=== PATIENT | male | born 1960 | race Caucasian/White ===

== ENCOUNTER 2024-01-03 08:44 | Observation (INO) ==
--- NOTE | 2023-12-02 13:28 | PAT Medication Instructions ---
Medication Instructions Date of Service December 02, 2023 Home Medications albuterol sulfate 90 mcg/actuation aerosol inhaler 2 puff inhalation QID PRN diclofenac sodium 1 % topical gel (Voltaren Arthritis Pain) 2 g topical QID PRN docusate sodium 100 mg capsule (Dulcolax Stool Softener (docusate)) 100 mg PO DAILY famotidine 20 mg tablet 20 mg PO BID fluticasone propionate 50 mcg/actuation nasal spray,suspension 50 mcg intranasal QAM mometasone 220 mcg/actuation(60 doses) breath activated powder inhaler (Asmanex Twisthaler) 220 mcg inhalation BID mometasone-formoterol HFA 50 mcg-5 mcg/actuation aerosol inhaler (Dulera) 2 puff inhalation Q12H montelukast 10 mg tablet 10 mg PO HS STOP taking 24 hours before surgery diclofenac sodium 1 % topical gel (Voltaren Arthritis Pain) 2 g topical QID PRN DO NOT take the morning of surgery docusate sodium 100 mg capsule (Dulcolax Stool Softener (docusate)) 100 mg PO DAILY Take morning of surgery With a small sip of water, OTHERWISE NOTHING TO EAT OR DRINK AFTER MIDNIGHT: albuterol sulfate 90 mcg/actuation aerosol inhaler 2 puff inhalation QID PRN(use if needed; please bring with you to hospital day of surgery if possible) famotidine 20 mg tablet 20 mg PO BID fluticasone propionate 50 mcg/actuation nasal spray,suspension 50 mcg intranasal QAM mometasone 220 mcg/actuation(60 doses) breath activated powder inhaler (Asmanex Twisthaler) 220 mcg inhalation BID mometasone-formoterol HFA 50 mcg-5 mcg/actuation aerosol inhaler (Dulera) 2 puff inhalation Q12H Take evening before surgery albuterol sulfate 90 mcg/actuation aerosol inhaler 2 puff inhalation QID PRN(if needed) famotidine 20 mg tablet 20 mg PO BID mometasone 220 mcg/actuation(60 doses) breath activated powder inhaler (Asmanex Twisthaler) 220 mcg inhalation BID mometasone-formoterol HFA 50 mcg-5 mcg/actuation aerosol inhaler (Dulera) 2 puff inhalation Q12H montelukast 10 mg tablet 10 mg PO HS Other Notes If you have any questions please call us at [phone] or [phone] or [phone] or [phone]
--- NOTE | 2023-12-11 14:39 | Anesthesiology Consultation ---
Date of Service December 11, 2023 Assessment & Plan (1) Encounter for pre-operative examination: - Outpatient joint assessment: Patient is currently scheduled for inpatient pathway. If re-evaluated and patient/surgeon requests outpatient pathway, patient is acceptable candidate for outpatient joint program from anesthesia standpoint pending surgeon's office assessment of pt motivation/support/completion of same day joint program preop requirements. - facial hair: patient was advised on shaving/trimming facial hair. Chart Review Chart Review: Acceptable Risk for Surgery and Patient seen in Pre Admission Testing Teaching & Discussion Pre-Anesthesia Teaching/Discussion Notes: Instructed NPO after midnight before surgery, except medications with 15 cc of water. Medication instructions provided according to the PAT guidelines. History Surgery Operation Date: 01/03/24 08:00 Proposed Procedures p Right Total Knee Arthroplasty - Jovanni Fernandez DO Height/Weight Height: 5 ft 8 in Weight: 95.2 kg Allergies Allergy/AdvReac Type Severity Reaction Status Date / Time No Known Allergies Allergy Verified 11/29/23 14:14 Medications Home Medications Medication Instructions Recorded Confirmed Last Taken albuterol sulfate 90 mcg/actuation 2 puff inhalation QID PRN sob 11/29/23 11/29/23 Unknown aerosol inhaler diclofenac sodium 1 % topical gel 2 g topical QID PRN Pain 11/29/23 11/29/23 Unknown (Voltaren Arthritis Pain) docusate sodium 100 mg capsule 100 mg PO QPM 11/29/23 12/11/23 Unknown (Dulcolax Stool Softener (docusate)) famotidine 20 mg tablet 20 mg PO BID 11/29/23 11/29/23 Unknown fluticasone propionate 50 50 mcg intranasal QAM 11/29/23 11/29/23 Unknown mcg/actuation nasal spray,suspension mometasone 220 mcg/actuation(60 220 mcg inhalation BID 11/29/23 11/29/23 Unknown doses) breath activated powder inhaler (Asmanex Twisthaler) mometasone-formoterol HFA 50 mcg-5 2 puff inhalation Q12H 11/29/23 11/29/23 Unknown mcg/actuation aerosol inhaler (Dulera) montelukast 10 mg tablet 10 mg PO HS 11/29/23 11/29/23 Unknown Past Medical History Medical History (Updated 12/12/23 @ 09:34 by Paige Randall PA-C) Acid reflux controlled, stable per pt Asthma controlled w/ daily inhaler use; last albuterol inhaler use several days ago; patient reports average use as several times a week DJD (degenerative joint disease) Hx of bronchitis last episode several years ago Seasonal allergies Patient denies h/o stroke, seizures, heart attack, heart failure, DM, HTN, blood clots/DVTs or blood transfusions. Exercise / Class Metabolic Activity III < 4 Walking/Shop/Light housework (denies chest discomfort or shortness of breath with usual activities) Past Surgical History Surgical History History of ear surgery benign tumor History of vasectomy Hx of appendectomy Hx of tooth extraction Past Anesthesia History No Hx of Anesthesia Complications and No Family Hx of Anesthesia Complications History of PONV History of PONV (during drive home from surgery) and Hx of Motion Sickness Social History Smoking Status: Never smoker Do You Dip or Chew Tobacco: No (quit 8-9 yrs ago) Hx Alcohol Use: Yes alcohol intake frequency: a few times a week Hx Substance Use: No substance use type: does not use Review of Systems Snoring, denies witnessed apneas. Patient denies chest pain, shortness of breath, dyspnea on exertion, fever, chills, cough, wheezing, or palpitations. Physical Exam Vital Signs Vitals BP 125/71 P 77 TEMP 97.6 SP02 94% on RA RESP 18 Physical Patient resting comfortably in chair in no acute distress, alert and oriented, responding appropriately throughout visit Full cervical extension range of motion without pain TMD 3.5 finger breadths Mallampati Score 2 Dentition: upper removable bridge, denies chipped or loose teeth, caps/crowns, or implants Lungs: normal respiratory effort. Good air movement, clear throughout to auscultation, no adventitious breath sounds Cardiac: regular rate and rhythm, no murmurs noted Carotid arteries: negative bruit bilat Lab Results Anesthesia Preop Results Results Anesthesia Widget: WBC 6.47 K/ul (4.8-10.8) 12/11/23 Hgb 15.6 g/dl (14.0-18.0) 12/11/23 Hct 46.3 % (42.0-52.0) 12/11/23 Plt 186 K/uL (130-400) 12/11/23 Na 137 mmol/L (136-145) 12/11/23 K 4.2 mmol/L (3.5-5.1) 12/11/23 Cl 104 mmol/L (98-107) 12/11/23 CO2 27 mmol/L (21-32) 12/11/23 BUN 16 mg/dl (6-23) 12/11/23 Creat 0.94 mg/dl (0.6-1.4) 12/11/23 Glucose Level 142 mg/dl (70-99(Fasting)) H 12/11/23 PT 10.3 Seconds (9.0-12.0) 12/11/23 PTT 29 Seconds (21-31) 12/11/23 INR 0.9 (0.9-1.1) 12/11/23 Blood Type O Positive 12/11/23 Antibody Screen NEGATIVE 12/11/23 Testing Electrocardiogram Date: 12/11/23 NSR, rate 66 bpm Left anterior fascicular block Incomplete RBBB Chest X-Ray Date: 12/11/23 No active disease in the chest.
[~2024-01-03 08:44] MED LIST: BUPIVACAINE 0.5 % 5 MG/1 ML PF 10ML VIAL ONE; ROPIVACAINE 0.5% 5 MG/ML 30 ML VIAL ONE
[2024-01-03] MEDS: ACETAMINOPHEN 500 MG TAB PO SCH ×2 (09:56→14:29)
[2024-01-03] MEDS: GABAPENTIN 600 MG DOSE PO SCH (09:56)
[2024-01-03] MEDS: FAMOTIDINE 20 MG TAB PO SCH ×2 (10:00→20:14)
[2024-01-03] MEDS: dexAMETHasone**PF** 10 MG/ML VIAL IV SCH (10:04)
[2024-01-03] MEDS: LR 500ML BOLUS, THEN 15ML/HR IV SCH (10:04)
[2024-01-03] MEDS: LR 60ML/HR IV SCH (10:05)
--- NOTE | 2024-01-03 10:12 | History & Physical Bridge Note ---
Date of Service January 03, 2024 History & Physical Bridge Note I have examined the patient, reviewed the History & Physical and in the interval since the performance of the History & Physical I have noted the following changes of clinical significance: no changes noted
[2024-01-03] MEDS ORDERED: MIDAZOLAM HCL 1 MG/ML 2ML VIAL ONE (10:17)
[2024-01-03] MEDS ORDERED: ATROPINE SULFATE 0.1 MG/ML 10ML SYR IV PRN (10:48)
[2024-01-03] MEDS ORDERED: ONDANSETRON INJ 2 MG/ML 2 ML VIAL IV PRN ×2 (10:48→13:49)
[2024-01-03] MEDS ORDERED: ePHEDrine sulfate 50 MG/ML AMP IV PRN (10:48)
[2024-01-03] MEDS ORDERED: fentaNYL citrate PF 100 MCG/2 ML VIAL IV PRN (10:48)
[2024-01-03] MEDS: TRANEXAMIC ACID 1,000 MG **IV Pre-op IV SCH (10:55)
[2024-01-03] MEDS: ceFAZolin 2000MG 2,000 MG/15 ML SYR IV SCH ×2 (11:09→18:11)
[2024-01-03] MEDS: ORTHO JOINT ANESTHETIC ONE (11:53)
[2024-01-03] MEDS: ROPIV 0.5% 246mg, Ketorolac 30mg, EPINEPHrine 0.5mg in NSS INFIL SCH (11:53)
[2024-01-03] MEDS ORDERED: PROPOFOL IV EMULSION 10 MG/ML 20 ML VIAL IV ONE (12:06)
[2024-01-03] MEDS ORDERED: LIDOCAINE 2% 2 ML VIAL/AMP(20MG/ML) INFIL ONE (12:06)
[2024-01-03] MEDS ORDERED: PHENYLEPHRINE 100MCG/ML 5ML SYR ONE (12:09)
[2024-01-03] MEDS: TRANEXAMIC ACID 1,000 MG **IV Intra-op IV SCH (12:15)
--- NOTE | 2024-01-03 12:50 | Operative Report ---
PG Post Operative Report Pre & Post Diagnosis Operation Date: 01/03/24 11:00 Pre-Op Diagnosis: Degenerative Joint Disease, Right Knee Post-Op Diagnosis: Degenerative Joint Disease, Right Knee I identified the patient and participated in the time-out.: Yes Procedure Operation Date: 01/03/24 11:00 Actual Procedures p Right Total Knee Arthroplasty - Jovanni Fernandez DO Surgeon Jovanni Fernandez DO Anodizer Jovanni Nunes PA-C Estimated Blood Loss 30 Findings Consistent with Post-Op Diagnosis Specimens Right femoral and tibial bone Description of Procedure Implants used: I used a Ben Persona total knee arthroplasty system with a size 10 standard PS femur, F tibia, 31 oval patella, and a size 10 CPS polyethylene bearing. All components were cemented in place with Biomet cement. Roscoe arrived [facility] for the above procedure. He was seen in the preoperative holding area and the operative extremity was identified and signed. He was given a preoperative antibiotic, TXA, a spinal anesthetic and an adductor nerve block. He was taken back to the operating room and laid on the table in supine position. He was given basic sedation. The operative knee was then prepped and draped in sterile fashion. A timeout was done, and the patient and the operative extremity was properly identified. A midline incision was made directly over the patella. Dissection was taken down to the extensor mechanism. A subvastus arthrotomy was used. The medial retinaculum was released and the fat pad was mostly excised. The knee was flexed and the ACL, PCL, and meniscus were removed. A drill was sent down the center of the femoral canal followed by an intramedullary carlee. Off that carlee a distal femoral cutting block was placed. 9 mm was resected off the distal femur at 5 of valgus. A posterior referencing AP sizing guide was then placed on the distal femur. The femur measured to be a size 10. 2 drill holes were placed in 3 of external rotation. A 4-in-1 cutting block was then impacted into place. Anterior, posterior, and chamfer cuts were then made. The proximal tibia was then exposed. An external tibial alignment guide was placed. A tibial cut guide was then anchored in place and the proximal tibia was then resected. The posterior aspect of the knee was then opened up and any additional meniscus fragments and osteophytes were removed. The tibia measured to be a size F. The tibial plate was then placed in the appropriate rotation and the tibia was drilled and punched. Trial components were then placed. I used a size 10 CPS polyethylene insert. The knee was brought through a full range of motion and felt to be stable. The peg holes for the femoral component were then drilled. The patella was then everted and 9 mm was resected off the posterior aspect of the patella. The patella measured to be a size 31 oval. 3 peg holes were then drilled. A trial patella was placed. The knee was once again brought through a full range of motion and felt to be stable. Trial components were then removed. The surrounding soft tissues were injected with 100 cc of an orthopedic pain control cocktail. All components were then cemented into place with Biomet cement. The final polyethylene insert was then snapped into place. Once cement was dry the tourniquet was deflated. Hemostasis was obtained. A dilute betadyne lavage was then done for 3 minutes. The joint was then irrigated with normal saline solution. The subvastus arthrotomy was then closed with #1 Vicryl suture. The skin was closed with 2-0 Vicryl, 3-0V lock suture, and timmy. A soft compressive dressing was placed. He was then transferred to a hospital bed and taken to the postanesthesia care unit in stable condition. He tolerated the procedure well. Jovanni Nunes PA-C, was present for the entire procedure. He was critical for patient positioning, prepping, draping, retraction exposure, wound closure and application of sterile dressing. I attest to the content of the Intraoperative Record and any orders documented therein. Any exceptions are noted below.
--- NOTE | 2024-01-03 12:57 | XRay Report ---
TWO VIEWS RIGHT KNEE CLINICAL HISTORY: Postoperative examination. FINDINGS: AP and crosstable lateral portable views of the right knee are obtained. A right knee arthr oplasty is in near anatomic alignment. There has been undersurface remodeling of the patella. No acut e fracture is seen. There is likely cement material along the lateral joint space. There are expected postoperative changes around the knee including skin clips, soft tissue edema, and subcutaneous gas. IMPRESSION: Expected postoperative changes status post right knee arthroplasty. No acute fracture is seen. ACT 112: Negative or not required by law. Electronically signed by: Balta Cortes M.D. 01/03/2024 12:56 PM
[2024-01-03] MEDS ORDERED: METOCLOPRAMIDE HCL INJ 5 MG/ML 2 ML VIAL IV PRN (13:49)
[2024-01-03] MEDS ORDERED: bisacodyL 10 MG SUPP PR PRN (13:49)
[2024-01-03] MEDS ORDERED: HYDROmorphone INJ 0.5 MG/0.5 ML SYR IV PRN (13:49)
[2024-01-03] MEDS ORDERED: oxyCODONE HCL IR 5 MG TAB (IMMEDIATE RELEASE) PO PRN (13:49)
[2024-01-03] MEDS ORDERED: ALBUTEROL HFA 8 GM INHALER INH PRN (13:49)
[2024-01-03] MEDS ORDERED: MAGNESIUM HYDROXIDE SUSP 30 ML UDC PO PRN (13:49)
[2024-01-03] MEDS ORDERED: NALOXONE HCL 0.4 MG/1 ML VIAL/CARP IV PRN (13:49)
--- NOTE | 2024-01-03 14:22 | Anesthesiology Progress Note ---
Date of Service January 03, 2024 Anesthesia Post Procedure Vital Signs Vital Signs: Temp Pulse Pulse Resp BP Pulse Ox O2 Del Method 01/03/24 14:10 36.6 C 72 16 149/79 H 94 Room Air 01/03/24 13:40 36.4 C L 76 16 118/78 94 Room Air 01/03/24 13:25 36.6 C 81 15 116/83 95 Room Air 01/03/24 13:15 36.6 C 81 20 108/72 94 Oxymask 01/03/24 13:05 36.6 C 69 8 L 107/74 96 Oxymask 01/03/24 12:55 72 8 L 93/68 L 95 Oxymask 01/03/24 12:45 73 8 L 94/66 L 95 Oxymask 01/03/24 12:35 36.1 C L 75 16 104/61 95 Oxymask 01/03/24 09:30 Room Air 01/03/24 09:30 36.5 C 72 20 129/88 96 Room Air O2 Flow Rate 01/03/24 14:10 01/03/24 13:40 01/03/24 13:25 01/03/24 13:15 3 01/03/24 13:05 5 01/03/24 12:55 9 01/03/24 12:45 9 01/03/24 12:35 9 01/03/24 09:30 01/03/24 09:30 Notes Mental Status: alert / awake / arousable Patient Amnestic to Procedure: Yes Nausea / Vomiting: adequately controlled Pain: adequately controlled Airway Patency, RR, SpO2: stable & adequate BP & HR: stable & adequate Hydration State: stable & adequate Neuraxial Anesthesia: was administered and sensory block is resolving Anesthetic Complications: no major complications apparent
[2024-01-03] MEDS: KETOROLAC 30 MG/ML VIAL IV SCH (14:29)
[2024-01-03] MEDS: DOCUSATE SODIUM 100 MG CAP PO SCH (20:14)
[2024-01-03] MEDS: SENNA 8.6 MG TAB PO SCH (20:14)
[2024-01-03] MEDS: MONTELUKAST SODIUM 10 MG TABLET PO SCH (20:15)
[2024-01-03] MEDS: ASPIRIN 81 MG ECTAB PO SCH (20:15)
--- NOTE | 2024-01-04 06:14 | Discharge Summary ---
Date of Service January 04, 2024 Principal Diagnosis Same as "Discharge Diagnosis" noted below under Discharge Instructions. Discharge Exam On physical exam of the right knee, the dressing is clean and dry. His leg is out full extension. He has active dorsiflexion plantarflexion of his right ankle.. Discharge Data Procedures Performed Operation Date: 01/03/24 11:00 Actual Procedures p Right Total Knee Arthroplasty - Jovanni Fernandez DO Ordered Studies 01/03/24 05:00 US - OR guided needle placemen Routine Hospital Course (1) Status post right knee replacement: On January 03, 2024 Roscoe arrived at [facility] and underwent a right knee replacement without complication. He had a spinal anesthetic. Postoperatively he was started on aspirin for DVT prophylaxis and transferred to the general orthopedic floors. His hospital course was uneventful. On postop day #1, his vital signs were stable and his pain was well-controlled. He was able to participate well with physical therapy doing ambulation and range of motion exercises. He was then discharged to home. He will follow-up orthopedics in 2 weeks. PG Care Time/CCT Total # of Minutes Spent Total Time Spent with Patient: Total time spent is greater than 50% in coordination of care (as documented) at patient's floor/unit and/or counseling patient: Discharge Plan Discharge Items Patient Disposition: Home - Self-Care Reason For Visit: Degenerative Joint Disease, Right Knee Discharge Diagnosis: Right knee replacement Activity: Per Instructions section Non-emergency contact: Surgeon Call non-emergency contact if: your wound has increased redness and your wound has increased drainage Follow-up/Referrals: Florin Johansen PA-C [Primary Care Provider] - Diet: Regular Addtl Attending Provider Instructions: Activity and Therapy Recommendations: * If you are using [facility] then therapy will be provided at your home until they feel you have accomplished all of your goals. * If you are using [facility] then Physical Therapy will be provided until they feel you are ready to start Outpatient Physical Therapy. * If you are not using home therapy then Outpatient Physical Therapy should start about 3-5 days from your day of surgery. Therapy will last about 6-10 weeks * It is important not to put a pillow under your knee when you are relaxing or sleeping. It is just as important to make sure you are getting your knee perfectly straight as it is to regain your knee bend. * You were shown a series of exercises in the hospital. Do these exercises three times each day including the exercises you were shown in physical therapy. * Get up and walk several times each day. For the first four weeks, try not to stand or walk for more than one hour at a time. If you do stand or walk for more than one hour, you will not hurt anything, but your leg will likely swell. * As you feel comfortable, you may change from the walker or crutches to a cane and then to independent walking. Medications: * Narcotic You will likely be sent home from the hospital with a prescription for the narcotic pain medication that worked best throughout your stay. * Cefadroxil -take the antibiotic twice a day for 10 days to help prevent infection. * Aspirin Most patients will be required to take Aspirin 81mg twice a day for 6 weeks after surgery. This is obtained [id number] and a prescription is not necessary. * Other medications may be prescribed for specific circumstances. If you have any questions, please call the office at . * Resume previous home medications unless otherwise instructed TEDs/Elastic Stockings: The white elastic stockings help limit swelling and prevent blood clots from forming in your legs.~ The more you wear them, the more they work. Wear them for six weeks. Dressing Care: The dressing can be changed after physical therapy on postop day #1. Daily dry dressing changes for a few days, especially if the incision is still draining some. If the incision is not draining then you may leave the timmy open to air. If there is a little bit of drainage or if the timmy are getting stuck on your clothing then cover the incision with a dry dressing. The timmy will be removed at your 2 week follow-up appointment. Showering: You may shower 5 days from the day of surgery as long as the incision is no longer draining. You may shower with the timmy exposed. Let soapy water run over the timmy and pat them dry. Do not scrub or soak the incision. Diet: You may resume your previous diet. Things To Watch For: * Drainage from the incision site that occurs more than one week after your surgery. * Increased redness at the incision site. * Fever above 102 degrees Fahrenheit. * Unusual chest pain or shortness of breath. * Call [facility] at with any of the above problems Follow-Up Visit: Follow-up with Dr. Fernandez's PA (Jovanni Nunes) 2-3 weeks after your day of surgery. He will remove your timmy and answer any questions. If you have any additional questions or concerns, Dr Fernandez is usually in the office at the same time and will be available An appointment was probably scheduled when you signed-up for surgery in the office. If you have any questions call Office Instructions: More detailed instructions as well as Frequently Asked Questions were provided in a folder by our office when you signed-up for surgery. Please review these instructions when you get home. If you have any further questions or concerns, please feel free to call the office at [phone] Pending Studies at Discharge: No Stand-Alone Forms: My [facility], Smoking Cessation Medications and DC Order Prescriptions: New oxycodone 5 mg Tablet 5 mg PO Q4H PRN (Reason: pain) Qty: 30 0RF cefadroxil 500 mg capsule 500 mg PO BID 10 Days Qty: 20 0RF aspirin 81 mg Tablet,Delayed Release (Dr/Ec) 81 mg PO BID 42 Days Qty: 0 0RF Continued famotidine 20 mg Tablet 20 mg PO BID docusate sodium [Dulcolax Stool Softener (dss)] 100 mg Capsule 100 mg PO QPM montelukast 10 mg Tablet 10 mg PO HS albuterol sulfate 90 mcg/actuation HFA aerosol inhaler 2 puff INHALATION QID PRN (Reason: sob) fluticasone propionate 50 mcg/actuation spray,suspension 50 mcg INTRANASAL QAM Asmanex Twisthaler 220 mcg/ actuation (60) aerosol powdr breath activated 220 mcg INHALATION BID diclofenac sodium [Voltaren Arthritis Pain] 1 % Gel 2 g TOPICAL QID PRN (Reason: Pain) Rx Instructions: apply to single elbow, wrist or hand; for hand includes palm/fingers/back of hand Dulera 50-5 mcg/actuation Hfa Aerosol Inhaler 2 puff INHALATION Q12H Discharge Orders: Discharge Order (Routine); Ordered 01/04/24 Ordered By: Jovanni Fernandez Admission Data Admit Date/Time: 01/03/24 12:36 Attending Provider: Jovanni Fernandez Admit Provider: Jovanni Fernandez Primary Care Provider: Florin Johansen Other Providers: [employer]
--- NOTE | 2024-01-04 06:14 | Orthopedic Progress Note ---
Date of Service January 04, 2024 Assessment & Plan (1) Status post right knee replacement: Overall he is doing very well. He is not having much pain in the right knee. He will be seen by physical therapy today for ambulation and range of motion exercises. The nursing staff can change his dressing after physical therapy. He is on aspirin for DVT prophylaxis. He can be discharged to home later today. He will follow-up with orthopedics in 2 weeks. Temo Gallego was seen and examined at bedside this morning. Overall he is doing very well. He is not having much pain in the right knee. He has been up and ambulated to the bathroom. Has no complaints.. Review of Systems All systems reviewed & are unremarkable except as noted in HPI & below. Physical Exam On physical exam of the right knee, the dressing is clean and dry. His leg is out full extension. He has active dorsiflexion plantarflexion of his right ankle.. Results & Data Results & Data Laboratory Results . Diagnostic Findings Postoperative x-rays of the right knee show the prosthesis to be in anatomic alignment without any evidence of fracture complication, or loosening.. PG Care Time/CCT Total # of Minutes Spent Total Time Spent with Patient: Total time spent is greater than 50% in coordination of care (as documented) at patient's floor/unit and/or counseling patient: Coding Level of Care Code 46358 Post Operative Follow-Up Diagnoses Status post right knee replacement Z96.651
[2024-01-04] MEDS: dexAMETHasone 4 MG TAB PO SCH (08:11)
[2024-01-04] MEDS: MULTIVITAMIN TAB PO SCH (08:12)
[2024-01-04] MEDS: FLUTICASONE PROPIONATE NA SPR 16 GM BTL SCH (08:12)
[2024-01-04] MEDS: FLUTICASONE/VILANTEROL 100/25MCG 14 PUFFS/INHALER INH SCH (08:13)
[2024-01-04] MEDS ORDERED: FLUTICASONE FUROATE 200MCG 14 PUFFS/INHALER INH SCH (09:00)
== END 2024-01-04 10:41 | disposition home health service (06) ==
LOC: 3W 08:44 → ASU 08:44